=== PATIENT | female | born 1990 | race Two or more races ===

== ENCOUNTER 2020-09-01 11:24 | Outpatient (CLI) | payer OTHER | END 2020-09-01 12:35 | disposition home or self-care (01) | LOC: OFIC 805 11:24 | PROVIDERS: ATTEND Otolaryngology Otology & Neurotology | DX: E04.8 Other specified nontoxic goiter (principal); F45.8 Other somatoform disorders ==

== ENCOUNTER 2021-09-07 10:15 | Inpatient (IN) | payer OTHER ==
[~2021-09-07] VITALS: Ht 162.6 cm; Wt 2.7 kg
[2021-09-12] MEDS ORDERED: PRENATAL CAPLE1 EAC1 PO (08:40)
== END 2021-09-14 13:11 | disposition home or self-care (01) | DRG 785 ==
LOC: O/R 09-12 06:36 → OB/GYN 09-12 09:15
PROVIDERS: ADMIT Obstetrics & Gynecology; ATTEND Obstetrics & Gynecology
PROC: 0UB70ZZ Excision of Bilateral Fallopian Tubes, Open Approach (ICD-10-PCS; 2021-09-12)
PROC: 4A1HXCZ Monitoring of Products of Conception, Cardiac Rate, External Approach (ICD-10-PCS; 2021-09-12)
PROC: 10D00Z1 Extraction of Products of Conception, Low, Open Approach (ICD-10-PCS; principal; 2021-09-12 14:05)
DX: O34.211 Maternal care for low transverse scar from previous cesarean delivery (principal); Z30.2 Encounter for sterilization; Z37.0 Single live birth; Z3A.39 39 weeks gestation of pregnancy